=== PATIENT | female | born 1935 | race Caucasian/White ===

== ENCOUNTER 2022-02-07 09:47 | Emergency (ER) | payer SELFPAY ==
[~2022-02-07] VITALS: Ht 165.1 cm; Wt 59.0 kg
[2022-02-07 09:52] VITALS: BP 131/96
== END 2022-02-07 12:00 | disposition home or self-care (01) ==
LOC: ER 09:47
DX: R68.89 Other general symptoms and signs (principal); Z59.00 Homelessness unspecified
CPT/HCPCS: 99283

== ENCOUNTER 2022-02-09 10:03 | Emergency (ER) | payer SELFPAY ==
[~2022-02-09] VITALS: Ht 165.1 cm; Wt 60.0 kg
[2022-02-09 10:58] VITALS: BP 127/75
[2022-02-09] MEDS ORDERED: SODIUM CHLORIDE 0.9% 1,000 ML IV ONE (11:15)
== END 2022-02-09 10:59 | disposition home or self-care (01) ==
LOC: ER 10:03
DX: R63.8 Other symptoms and signs concerning food and fluid intake (principal); Z13.9 Encounter for screening, unspecified
CPT/HCPCS: 99281; J7030

== ENCOUNTER 2022-02-10 12:22 | Emergency (ER) | payer SELFPAY ==
[~2022-02-10] VITALS: Ht 152.4 cm; Wt 55.0 kg
[2022-02-10 14:46] VITALS: BP 141/69
== END 2022-02-10 14:47 | disposition home or self-care (01) ==
LOC: ER 12:22
DX: Z59.02 Unsheltered homelessness (principal)
CPT/HCPCS: 99281